=== PATIENT | female | born 1980 | race Caucasian/White ===

== ENCOUNTER 2017-04-07 18:09 | Emergency (ER) | payer OTHER ==
[2017-04-07] MEDS ORDERED: ADENOSINE 6 MG/2 ML VIAL IVP ONE (18:15)
[2017-04-07] MEDS ORDERED: NS 1,000 ML IV ONE (18:15)
[2017-04-07] MEDS ORDERED: ADENOSINE 6 MG/2 ML VIAL ONE (18:15)
--- NOTE | 2017-04-07 18:16 | EDPHY ---
H & P Time Seen by Provider: 04/07/17 18:10 HPI/ROS: CHIEF COMPLAINT: Palpitations HISTORY OF PRESENT ILLNESS: Patient is a 36-year-old female who comes to the emergency department by EMS complaining of palpitations and lightheadedness. Her symptoms began about half an hour ago. She has noticed by EMS to be in SVT. Her vital signs are otherwise stable. She does take thyroid medication and had it doubled about 2 months ago. She is due for blood work. She also smokes intermittently since she began divorce proceedings in the last few months. She has no history of cardiac disease. She also whose using alcohol and cocaine last night the. She was at work today when her symptoms began. REVIEW OF SYSTEMS: Constitutional: denies: chills, fever, recent illness, recent injury EENTM: denies: blurred vision, double vision, nose congestion Respiratory: denies: cough, shortness of breath Cardiac: See HPI Gastrointestinal/Abdominal: denies: abdominal pain, diarrhea, nausea, vomiting, blood streaked stools Genitourinary: denies: dysuria, frequency, hematuria, pain Musculoskeletal: denies: joint pain, muscle pain Skin: denies: lesions, rash, jaundice, bruising Neurological: denies: headache, numbness, paresthesia, tingling, dizziness, weakness Hematologic/Lymphatic: denies: blood clots, easy bleeding, easy bruising Immunologic/allergic: denies: HIV/AIDS, transplant EXAM: GENERAL: Well-appearing, well-nourished and in no acute distress. HEAD: Atraumatic, normocephalic. EYES: Pupils equal round and reactive to light, extraocular movements intact, sclera anicteric, conjunctiva are normal. ENT: TMs normal, nares patent, oropharynx clear without exudates. Moist mucous membranes. NECK: Normal range of motion, supple without lymphadenopathy or JVD. LUNGS: Breath sounds clear to auscultation bilaterally and equal. No wheezes rales or rhonchi. HEART: Tachycardic 180 ABDOMEN: Soft, nontender, normoactive bowel sounds. No guarding, no rebound. No masses appreciated. BACK: No CVA tenderness, no spinal tenderness, step-offs or deformities EXTREMITIES: Normal range of motion, no pitting or edema. No clubbing or cyanosis. NEUROLOGICAL: Cranial nerves II through XII grossly intact. Normal speech, normal gait. 5/5 strength, normal movement in all extremities, normal sensation PSYCH: Normal mood, normal affect. SKIN: Warm, dry, normal turgor, no visible rashes or lesions. Source: Patient Exam Limitations: No limitations - Medical/Surgical History Hx Asthma: No Hx Chronic Respiratory Disease: No Hx Diabetes: No Hx Cardiac Disease: No Hx Renal Disease: No Hx Cirrhosis: No Hx Alcoholism: No Other PMH: 2 healthy pregnancies, hypothyroid - Family History Significant Family History: No pertinent family hx - Social History Smoking Status: Current some day smoker Alcohol Use: Occasionally Drug Use: Cocaine Constitutional: Initial Vital Signs Temperature (C) 36.7 C 04/07/17 18:16 Heart Rate 182 H 04/07/17 18:16 Respiratory Rate 18 04/07/17 18:16 Blood Pressure 154/114 H 04/07/17 18:16 O2 Sat (%) 98 04/07/17 18:16 O2 Delivery Mode Room Air Allergies/Adverse Reactions: No Known Allergies Allergy (Unverified 04/07/17 18:15) Medical Decision Making - Diagnostics EKG Interpretation: An EKG obtained and was read and documented in trace view. Please see trace view for full reading and report. SVT ED Course/Re-evaluation: 6:20 p.m. Using calming techniques the patient was able to convert spontaneously. 7:30 p.m. we discussed the patient's lab results. They are very reassuring. The patient is still slightly tachycardic around 108. She states that she feels nervous about being here in her ambulance ride. She also did cocaine about 12 hours ago and this may be contributing. I will treat her with a small dose of Ativan and more IV fluids and observed. Her white count is slightly elevated. She does endorse having a cold and sore throat at the beginning of this week but her symptoms have now resolved. 9:00 p.m. the patient is doing much better. Her tachycardia is resolved. She feels completely well and is eager to go home. We discussed follow-up with cardiology. We discussed indications for returning. Differential Diagnosis: Partial list of the Differential diagnosis considered include but were not limited to; supraventricular tachycardia, substance abuse, atrial fibrillation , presyncope and although unlikely based on the history and physical exam, I also considered acute coronary disease, head injury, infection. I discussed these differential diagnoses and the plan with the patient as well as the usual and expected course. The patient understands that the diagnosis is provisional and that in medicine we are not always correct and that further workup is often warranted. Usual and customary warnings were given. All of the patient's questions were answered. The patient was instructed to return to the emergency department should the symptoms at all worsen or return, otherwise to followup with the physician as we discussed. - Data Points Laboratory Results: Laboratory Results 04/07/17 18:00 04/07/17 18:00 04/07/17 04/07/17 04/07/17 18:00 18:00 18:00 WBC RBC Hgb Hct MCV MCH MCHC RDW Plt Count MPV Neut % (Auto) Lymph % (Auto) [place] % (Auto) Eos % (Auto) Baso % (Auto) Nucleat RBC Rel Count Absolute Neuts (auto) Absolute Lymphs (auto) Absolute Monos (auto) Absolute Eos (auto) Absolute Basos (auto) Absolute Nucleated RBC Immature Gran % Immature Gran # PT 13.2 SEC SEC (12.0-15.0) INR 1.01 (0.83-1.16) APTT 31.5 SEC SEC (23.0-38.0) Sodium 140 mEq/L mEq/L (134-144) Potassium 3.7 mEq/L mEq/L (3.3-5.0) Chloride 100 mEq/L mEq/L (97-110) Carbon Dioxide 21 mEq/l L mEq/l (22-31) Anion Gap 19 mEq/L H mEq/L (8-16) BUN 11 mg/dL mg/dL (7-23) Creatinine 0.6 mg/dL mg/dL (0.6-1.0) Estimated GFR > 60 Glucose 96 mg/dL mg/dL (70-100) Calcium 9.7 mg/dL mg/dL (8.5-10.4) Troponin I < 0.012 ng/mL ng/mL (0.000-0.034) TSH 1.410 uIU/mL uIU/mL (0.465-4.680) Free T4 1.78 ng/dL ng/dL (0.59-2.19) Beta HCG, Qual NEGATIVE 04/07/17 18:00 WBC 16.94 10^3/uL H 10^3/uL (3.80-9.50) RBC 4.49 10^6/uL 10^6/uL (4.18-5.33) Hgb 14.4 g/dL g/dL (12.6-16.3) Hct 45.0 % % (38.0-47.0) MCV 100.2 fL H fL (81.5-99.8) MCH 32.1 pg pg (27.9-34.1) MCHC 32.0 g/dL L g/dL (32.4-36.7) RDW 12.4 % % (11.5-15.2) Plt Count 475 10^3/uL H 10^3/uL (150-400) MPV 9.1 fL fL (8.7-11.7) Neut % (Auto) 66.0 % % (39.3-74.2) Lymph % (Auto) 26.8 % % (15.0-45.0) [place] % (Auto) 5.4 % % (4.5-13.0) Eos % (Auto) 0.6 % % (0.6-7.6) Baso % (Auto) 0.6 % % (0.3-1.7) Nucleat RBC Rel Count 0.0 % % (0.0-0.2) Absolute Neuts (auto) 11.19 10^3/uL H 10^3/uL (1.70-6.50) Absolute Lymphs (auto) 4.54 10^3/uL H 10^3/uL (1.00-3.00) Absolute Monos (auto) 0.91 10^3/uL H 10^3/uL (0.30-0.80) Absolute Eos (auto) 0.10 10^3/uL 10^3/uL (0.03-0.40) Absolute Basos (auto) 0.10 10^3/uL 10^3/uL (0.02-0.10) Absolute Nucleated RBC 0.00 10^3/uL 10^3/uL (0-0.01) Immature Gran % 0.6 % % (0.0-1.1) Immature Gran # 0.10 10^3/uL 10^3/uL (0.00-0.10) PT INR APTT Sodium Potassium Chloride Carbon Dioxide Anion Gap BUN Creatinine Estimated GFR Glucose Calcium Troponin I TSH Free T4 Beta HCG, Qual Medications Given: Discontinued Medications Adenosine (Adenosine) 6 mg IVP EDNOW ONE Stop: 04/07/17 18:16 Last Admin: 04/07/17 20:26 Dose: Not Given Sodium Chloride (Ns) 1,000 mls @ 0 mls/hr IV EDNOW ONE; Wide Open PRN Reason: Protocol Stop: 04/07/17 18:16 Last Admin: 04/07/17 18:56 Dose: 1,000 mls Lorazepam (Ativan Injection) 0.5 mg IVP EDNOW ONE Stop: 04/07/17 19:35 Last Admin: 04/07/17 20:00 Dose: 0.5 mg Departure - Departure Disposition: Home, Routine, Self-Care Clinical Impression: SVT (supraventricular tachycardia) Condition: Fair Instructions: Supraventricular Tachycardia (ED) Referrals: Patient,NotPresent [Unknown] - As per Instructions Wayne Payne MD [Medical Doctor] - 2-3 days, call for appt.
--- NOTE | 2017-04-07 18:20 | CPEKG ---
Heart Rate: 185 RR Interval: 324 QRSD Interval: 74 QT Interval: 252 QTC Interval: 443 P [place]: 0 QRS [place]: 22 T Wave [place]: 20 EKG Severity - ABNORMAL ECG - EKG Impression: SUPRAVENTRICULAR TACHYCARDIA EKG Impression: ST DEPRESSION, PROBABLY RATE RELATED Electronically Signed By: Leo Shine 07-Apr-2017 18:20:17
[2017-04-07 18:22] LABS: HEMOGLOBIN 14.4 g/dL (12.6-16.3); MEAN CELL HEMOGLOBIN 32.1 pg (27.9-34.1); MEAN CELL VOLUME 100.2 fL (81.5-99.8); RED BLOOD CELL COUNT 4.49 10^6/uL (4.18-5.33); RED CELL DISTRIBUTION WIDTH 12.4 % (11.5-15.2)
[2017-04-07 18:23] LABS: % IMMATURE GRANULYOCYTES 0.6 % (0.0-1.1); ADD DIFF? NO; ADD MORPH? NO; ADD SCAN? NO; ATYPICAL LYMPHOCYTE FLAG 20 (0-99); FRAGMENT RBC FLAG 0 (0-99); LEFT SHIFT FLG 0 (0-99); LIPEMIA HEMOLYSIS FLAG 80 (0-99); MEAN PLATELET VOLUME 9.1 fL (8.7-11.7); PLATELET CLUMPS FLAG 30 (0-99); PLATELET COUNT 475 10^3/uL (150-400)
[2017-04-07 18:36] LABS: INR 1.01 (0.83-1.16); PROTIME(PATIENT) 13.2 SEC (12.0-15.0)
[2017-04-07 18:37] LABS: APTT 31.5 SEC (23.0-38.0)
[2017-04-07 18:44] LABS: ANION GAP 19 mEq/L (8-16); CALCIUM 9.7 mg/dL (8.5-10.4); CARBON DIOXIDE 21 mEq/l (22-31); CHLORIDE 100 mEq/L (97-110); CREATININE 0.6 mg/dL (0.6-1.0); GLOMERULAR FILTRATION RATE > 60; GLUCOSE 96 mg/dL (70-100); SODIUM 140 mEq/L (134-144)
[2017-04-07 18:56] LABS: TROPONIN I < 0.012 ng/mL (0.000-0.034)
[2017-04-07 19:12] LABS: POTASSIUM 3.7 mEq/L (3.3-5.0)
[2017-04-07] MEDS ORDERED: LORazepam 2 MG/ML INJ IVP ONE (19:34)
[2017-04-07 20:28] VITALS: O2SAT 97
[2017-04-07 22:00] VITALS: BP 138/84; PULSE 97; RESP 16; TEMP 97.9
== END 2017-04-07 22:00 | disposition home or self-care (01) ==
LOC: EDUNIT#
DX: I47.1 Supraventricular tachycardia (principal); E86.9 Volume depletion, unspecified; F17.200 Nicotine dependence, unspecified, uncomplicated
CPT/HCPCS: 96374; J0153; J2060

== ENCOUNTER 2018-06-22 22:41 | Emergency (ER) | payer MEDICAID, OTHER ==
[2018-06-22 23:11] LABS: PLATELET COUNT 340 10^3/uL (150-400)
[2018-06-22 23:46] VITALS: BP 130/87
--- NOTE | 2018-06-22 23:47 | EDPHY ---
H & P Stated Complaint: not feeling well after work out, dizzy,sob Time Seen by Provider: 06/22/18 22:48 HPI/ROS: Chief complaint: Dizziness History of present illness: This is a 37-year-old female who presents to the emergency department with EMS for evaluation of dizziness. Patient was working out at the gym this evening. This is part of her normal routine. She felt more weak than usual and developed some palpitations. She went home and attempted to rest but symptoms persisted at which time she called EMS. On my evaluation she states she started to feel better but symptoms have not resolved. She denies fever or cold symptoms, she denies chest pain, she denies pain or swelling in the legs. This was a routine worked out there is nothing new or different as compared to previous workouts. Review of systems: A 10 point review of systems was obtained and other than described above was negative - Personal History LMP (Females 10-55): 22-28 Days Ago Current Tetanus Diphtheria and Acellular Pertussis (TDAP): No - Medical/Surgical History Hx Asthma: No Hx Chronic Respiratory Disease: No Hx Diabetes: No Hx Cardiac Disease: No Hx Renal Disease: No Hx Cirrhosis: No Hx Alcoholism: No Hx HIV/AIDS: No Hx Splenectomy or Spleen Trauma: No Other PMH: 2 healthy pregnancies, hypothyroid, SVT - Social History Smoking Status: Former smoker - Physical Exam Exam: General Appearance: Alert, nontoxic. Eyes: Pupils equal and round no pallor or injection. ENT, Mouth: Mucous membranes moist. Respiratory: There are no retractions, lungs are clear to auscultation. Cardiovascular: Regular rate and rhythm. Gastrointestinal: Abdomen is soft and non tender, no masses, bowel sounds normal. Neurological: Alert and oriented x4. Cranial nerves 2-12 grossly intact. Strength and sensation intact and symmetrical. Skin: Warm and dry, no rashes. Musculoskeletal: Neck is supple non tender. Extremities are symmetrical, full range of motion. Psychiatric: Patient is oriented X 3, there is no agitation. Constitutional: Initial Vital Signs Temperature (C) 37.1 C 06/22/18 22:46 Heart Rate 90 06/22/18 22:46 Respiratory Rate 16 06/22/18 22:46 Blood Pressure 152/86 H 06/22/18 22:46 O2 Sat (%) 95 06/22/18 22:46 O2 Delivery Mode Room Air Allergies/Adverse Reactions: No Known Allergies Allergy (Unverified 04/07/17 18:15) Home Medications: Medication Instructions Recorded Bcp 06/22/18 Levothyroxine 06/22/18 Medical Decision Making ED Course/Re-evaluation: Patient is discussed with my secondary supervising physician Dr. Florencio Kern. Patient presents to the emergency department with dizziness and palpitations. She is nontoxic. Vital signs are stable. Physical exam is benign. Blood studies and EKG unremarkable. She is IV hydrated and states she is feeling much better. She will be discharged home. Home care is discussed including rest and hydration. She is to follow up with her primary care doctor for recheck. She is given strict return precautions. The patient voiced understanding and agreement with plan. Differential Diagnosis: Included but not limited to dehydration, anemia, electrolyte disturbances, cardiac dysrhythmia, an associated complications, I believe PE unlikely-she is stable vital signs, low risk per Wells criteria - Data Points Laboratory Results: Laboratory Results 06/22/18 09:52 06/22/18 22:55 06/22/18 06/22/18 06/22/18 23:02 22:55 09:52 WBC RBC Hgb Hct MCV MCH MCHC RDW Plt Count MPV Neut % (Auto) Lymph % (Auto) [place] % (Auto) Eos % (Auto) Baso % (Auto) Nucleat RBC Rel Count Absolute Neuts (auto) Absolute Lymphs (auto) Absolute Monos (auto) Absolute Eos (auto) Absolute Basos (auto) Absolute Nucleated RBC Immature Gran % Immature Gran # Sodium 139 mEq/L mEq/L (135-145) Potassium 4.6 mEq/L mEq/L (3.5-5.2) Chloride 105 mEq/L mEq/L (97-110) Carbon Dioxide 22 mEq/l mEq/l (22-31) Anion Gap 12 mEq/L mEq/L (6-14) BUN 17 mg/dL mg/dL (7-23) Creatinine 0.8 mg/dL mg/dL (0.6-1.0) Estimated GFR > 60 Glucose 100 mg/dL mg/dL (70-100) Calcium 10.3 mg/dL mg/dL (8.5-10.4) POC Troponin I 0.00 ng/mL ng/mL (0.00-0.08) Beta HCG, Qual NEGATIVE 06/22/18 09:52 WBC 11.44 10^3/uL H 10^3/uL (3.80-9.50) RBC 4.60 10^6/uL 10^6/uL (4.18-5.33) Hgb 14.9 g/dL g/dL (12.6-16.3) Hct 44.9 % % (38.0-47.0) MCV 97.6 fL fL (81.5-99.8) MCH 32.4 pg pg (27.9-34.1) MCHC 33.2 g/dL g/dL (32.4-36.7) RDW 11.9 % % (11.5-15.2) Plt Count 340 10^3/uL 10^3/uL (150-400) MPV 10.1 fL fL (8.7-11.7) Neut % (Auto) 66.9 % % (39.3-74.2) Lymph % (Auto) 26.1 % % (15.0-45.0) [place] % (Auto) 5.7 % % (4.5-13.0) Eos % (Auto) 0.7 % % (0.6-7.6) Baso % (Auto) 0.4 % % (0.3-1.7) Nucleat RBC Rel Count 0.0 % % (0.0-0.2) Absolute Neuts (auto) 7.65 10^3/uL H 10^3/uL (1.70-6.50) Absolute Lymphs (auto) 2.99 10^3/uL 10^3/uL (1.00-3.00) Absolute Monos (auto) 0.65 10^3/uL 10^3/uL (0.30-0.80) Absolute Eos (auto) 0.08 10^3/uL 10^3/uL (0.03-0.40) Absolute Basos (auto) 0.05 10^3/uL 10^3/uL (0.02-0.10) Absolute Nucleated RBC 0.00 10^3/uL 10^3/uL (0-0.01) Immature Gran % 0.2 % % (0.0-1.1) Immature Gran # 0.02 10^3/uL 10^3/uL (0.00-0.10) Sodium Potassium Chloride Carbon Dioxide Anion Gap BUN Creatinine Estimated GFR Glucose Calcium POC Troponin I Beta HCG, Qual Point of Care Test Results: Chemistry 06/22/18 23:02 POC Troponin I 0.00 ng/mL ng/mL (0.00-0.08) Departure - Departure Disposition: Home, Routine, Self-Care Clinical Impression: Dizzy, Palpitations Condition: Good Instructions: Dehydration (ED) Additional Instructions: Follow-up with her primary care doctor this week for recheck Drink plenty of fluids to hydrate and get plenty of rest, avoid exercising until you see your doctor If symptoms worsen or new symptoms develop return to the emergency department for recheck. Referrals: Fatuma Barksdale [Primary Care Provider] - As per Instructions
--- NOTE | 2018-06-24 20:20 | CPEKG ---
Test Reason : OPEN Blood Pressure : / mmHG Vent. Rate : 086 BPM Atrial Rate : 085 BPM P-R Int : 164 ms QRS Dur : 093 ms QT Int : 359 ms P-R-T Axes : 047 015 024 degrees QTc Int : 430 ms Sinus rhythm Probable left atrial enlargement Confirmed by Howard Lamb [id number] on 06/24/2018 8:20:36 PM Referred By: Confirmed By:Howard Lamb
== END 2018-06-23 00:12 | disposition home or self-care (01) ==
LOC: EDUNIT#
DX: R42 Dizziness and giddiness (principal); R00.2 Palpitations
CPT/HCPCS: 84484-PO